=== PATIENT | female | born 1995 | race Two or more races ===

== ENCOUNTER 2024-06-02 14:52 | Inpatient (IN) | payer OTHER ==
[~2024-06-02] VITALS: Ht 165.1 cm; Wt 107.0 kg
[2024-06-02 12:09] VITALS: BP 147/83
[~2024-06-02 14:52] MED LIST: PRENA1 TRUE CO1 EACH
[2024-06-02] MEDS ORDERED: BETAMETHASONE ACETATE,SOD PHOS 30 MG/5 ML ML IM SCH (14:56)
[2024-06-02] MEDS ORDERED: RINGERS SOLUTION,LACTATED 1,000 ML IV SCH (15:00)
[2024-06-02] MEDS ORDERED: PROBIOTIC1 EACH PO (15:29)
[2024-06-02 15:30] VITALS: BP 149/75
[2024-06-02] MEDS ORDERED: BETAMETHASONE ACETATE,SOD PHOS 30 MG/5 ML ML ONE (15:52)
[2024-06-02 16:04] LABS: URINE APPEARANCE Cloudy; URINE BILIRRUBIN Negative (NEGATIVE); URINE BLOOD Negative; URINE COLOR Yellow; URINE GLUCOSE Negative (NEGATIVE); URINE KETONE Negative (NEGATIVE); URINE LEUKOCYTE Trace; URINE NITRATE Negative; URINE PROTEIN Trace (NEGATIVE)
[2024-06-02 16:08] LABS: URINE BACTERIA 8867.5 uL (0.0-1933); URINE EPITHELIAL CELLS 22.1 uL (0.0-38.8); URINE RBC 23.2 uL (0.0-20.8); URINE WBC 105.4 uL (0.0-23.2)
[2024-06-02 16:12] LABS: HEMATOCRIT 27.5 % (36.0-45.00); MEAN CORPUSCULAR HGB CONC 32.1 g/dl (32.0-36.0); PLATELET COUNT 239 K/uL (150-450); RED BLOOD COUNT 4.55 M/uL (4.00-6.00)
[2024-06-02 16:34] LABS: MEAN CORPUSCULAR HEMOGLOBIN 19.3 pg (27.00-32.0)
[2024-06-02 16:35] LABS: HEMOGLOBIN 8.8 g/dL (12.0-15.00); MEAN CELL VOLUME 60.3 fL (80.00-100.00); RED CELL DISTRIBUTION WIDTH 17.3 % (11.5-14.5)
[2024-06-02 16:42] LABS: INR 0.99; PARTIAL THROMBOPLASTIN TIME 24.3 SECONDS (22.0-34.0); PROTHROMBIN TIME 10.8 SECONDS (9.0-11.5); URINE CAST 1.22 uL (0.0-1.40)
[2024-06-02 16:46] LABS: ALBUMIN 2.5 gm/dL (3.4-5.0); BILIRUBIN TOTAL 0.43 mg/dL (0.3-1.2); CREATININE SERUM 0.39 mg/dL (0.55-1.02); GFR 192.97; GLOBULINA 3.3 G/DL (2.4-3.5); POTASSIUM 3.57 mEq/L (3.5-5.1); TOTAL PROTEIN 5.8 gm/dL (6.4-8.2)
[2024-06-02 19:48] VITALS: BP 139/78
[2024-06-02 23:38] VITALS: BP 149/70
[2024-06-03 03:24] VITALS: BP 116/60
[2024-06-03 06:26] VITALS: BP 121/61; O2SAT 100
[2024-06-03] MEDS ORDERED: SOD FERRIC GLUC COMPLX/SUCROSE 62.5 MG in 0.9 % SODIUM CHLORIDE 50 ML IV SCH (09:00)
[2024-06-03] MEDS ORDERED: SOD FERRIC GLUC COMPLX/SUCROSE 62.5 MG/5 ML AMPUL IV ONE (09:14)
[2024-06-03 11:50] VITALS: BP 142/60
[2024-06-03 13:07] VITALS: BP 149/84
[2024-06-03] MEDS ORDERED: RINGERS SOLUTION,LACTATED 1,000 ML IV SCH (15:00)
[2024-06-03] MEDS ORDERED: BETAMETHASONE ACETATE,SOD PHOS 30 MG/5 ML ML IM SCH (16:00)
[2024-06-03 16:12] VITALS: BP 118/61
[2024-06-03 18:10] LABS: URINE PROT QUANT 24HR 25.3 MG/DL
[2024-06-03 18:11] LABS: URINE PROT QUANT 24 HR 645.15 MG/24HR (42-225)
[2024-06-04 01:19] VITALS: BP 140/72
[2024-06-04] MEDS ORDERED: SOD FERRIC GLUC COMPLX/SUCROSE 62.5 MG/5 ML AMPUL IV ONE (08:52)
[2024-06-04] MEDS ORDERED: ACETAMINOPHEN 500 MG GEL..CAP PO PRN (12:15)
[2024-06-04 14:08] VITALS: BP 157/90
[2024-06-04 16:00] VITALS: BP 151/73
[2024-06-04 20:23] VITALS: BP 146/72
[2024-06-05 01:00] VITALS: BP 147/78
[2024-06-05 05:30] VITALS: BP 142/79
[2024-06-05 08:00] LABS: HEMATOCRIT 25.6 % (36.0-45.00); MEAN CORPUSCULAR HGB CONC 32.3 g/dl (32.0-36.0); PLATELET COUNT 222 K/uL (150-450); RED BLOOD COUNT 4.24 M/uL (4.00-6.00); RED CELL DISTRIBUTION WIDTH 17.1 % (11.5-14.5)
[2024-06-05 08:03] LABS: ALBUMIN 2.3 gm/dL (3.4-5.0); BILIRUBIN TOTAL 0.34 mg/dL (0.3-1.2); CALCIUM 8.2 mg/dL (8.5-10.1); CREATININE SERUM 0.35 mg/dL (0.55-1.02); GFR 218.64; POTASSIUM 3.68 mEq/L (3.5-5.1); TOTAL PROTEIN 5.3 gm/dL (6.4-8.2)
[2024-06-05 08:13] LABS: HEMOGLOBIN 8.3 g/dL (12.0-15.00); MEAN CELL VOLUME 60.4 fL (80.00-100.00); MEAN CORPUSCULAR HEMOGLOBIN 19.5 pg (27.00-32.0)
[2024-06-05 08:29] VITALS: BP 132/78
[2024-06-05 15:54] VITALS: BP 144/76; O2SAT 100
[2024-06-05] MEDS ORDERED: FAMOTIDINE/PF 20 MG/2 ML VIAL IV SCH (17:00)
[2024-06-05 19:04] VITALS: BP 136/79
[2024-06-05 23:13] VITALS: BP 132/79
[2024-06-06 03:40] VITALS: BP 120/69
[2024-06-06 07:45] VITALS: BP 150/71
[2024-06-06 11:25] VITALS: BP 150/80
[2024-06-06 16:27] VITALS: BP 140/79
[2024-06-07 01:16] VITALS: BP 136/74
[2024-06-07 01:17] VITALS: BP 136/74
[2024-06-07] MEDS ORDERED: SOD FERRIC GLUC COMPLX/SUCROSE 62.5 MG/5 ML AMPUL IV ONE (07:49)
[2024-06-07 09:00] VITALS: BP 158/82
[2024-06-07 11:16] VITALS: BP 157/77
[2024-06-07 14:00] VITALS: BP 144/86; BP 149/91
[2024-06-07 15:58] LABS: HEMOGLOBIN 9.6 g/dL (12.0-15.00); MEAN CORPUSCULAR HEMOGLOBIN 19.7 pg (27.00-32.0); MEAN CORPUSCULAR HGB CONC 32.2 g/dl (32.0-36.0); PLATELET COUNT 244 K/uL (150-450); RED BLOOD COUNT 4.89 M/uL (4.00-6.00); RED CELL DISTRIBUTION WIDTH 17.7 % (11.5-14.5)
[2024-06-07 15:59] LABS: MEAN CELL VOLUME 61.3 fL (80.00-100.00)
[2024-06-07 16:00] VITALS: BP 150/60
[2024-06-07 16:25] LABS: ALBUMIN 2.7 gm/dL (3.4-5.0); BILIRUBIN TOTAL 0.45 mg/dL (0.3-1.2); CREATININE SERUM 0.35 mg/dL (0.55-1.02); GFR 218.64; GLOBULINA 3.5 G/DL (2.4-3.5); POTASSIUM 3.74 mEq/L (3.5-5.1); TOTAL PROTEIN 6.2 gm/dL (6.4-8.2)
[2024-06-08 00:22] VITALS: BP 136/75
[2024-06-08 08:17] VITALS: BP 141/87; O2SAT 99
[2024-06-08 15:47] VITALS: BP 150/80
[2024-06-08 17:35] VITALS: BP 153/83
[2024-06-08] MEDS ORDERED: MISOPROSTOL 25 MCG/4 ML GEL.W.APPL ONE (18:12)
[2024-06-08] MEDS ORDERED: MISOPROSTOL 25 MCG TABLET VAG ONE (18:30)
[2024-06-08] MEDS ORDERED: MISOPROSTOL 25 MCG/4 ML GEL.W.APPL VAG ONE (18:45)
[2024-06-08 19:28] VITALS: BP 154/87
[2024-06-08 23:44] VITALS: BP 136/80
[2024-06-09 04:00] VITALS: BP 132/73
[2024-06-09 07:39] VITALS: BP 136/74
[2024-06-09] MEDS ORDERED: MISOPROSTOL 25 MCG TABLET ONE (07:43)
[2024-06-09] MEDS ORDERED: MISOPROSTOL 25 MCG TABLET VAG ONE (09:00)
[2024-06-09 11:16] VITALS: BP 152/79
[2024-06-09] MEDS ORDERED: OXYTOCIN 20 UNITS/500ML RL PIGGYBAG IV ONE (11:48)
[2024-06-09] MEDS ORDERED: OXYTOCIN 20 UNITS/500ML RL PIGGYBAG IV SCH (13:45)
[2024-06-09 16:03] VITALS: BP 153/63
[2024-06-09] MEDS ORDERED: CEFOXITIN SODIUM 2,000 MG VIAL IV ONE ×2 (16:58→18:15)
[2024-06-09] MEDS ORDERED: ERYTHROMYCIN BASE 1 GM TUBE OP SCH (17:15)
[2024-06-09] MEDS ORDERED: OXYTOCIN 1,000 ML IV SCH (17:15)
[2024-06-09] MEDS ORDERED: CHLORHEXIDINE GLUCONATE 120 ML BOTTLE TP SCH (17:15)
[2024-06-09] MEDS ORDERED: MAGNESIUM SULFATE IN WATER 500 ML IV SCH (17:15)
[2024-06-09] MEDS ORDERED: RINGERS SOLUTION,LACTATED 1,000 ML IV SCH (17:15)
[2024-06-09] MEDS ORDERED: METHYLERGONOVINE MALEATE 0.2 MG/ML AMPUL ONE ×3 (17:21→17:40)
[2024-06-09] MEDS ORDERED: METHYLERGONOVINE MALEATE 0.2 MG/ML AMPUL IM SCH (17:22)
[2024-06-09] MEDS ORDERED: OXYTOCIN 10 UNIT/ML (10ML) IV ONE (17:30)
[2024-06-09] MEDS ORDERED: OXYTOCIN 10 UNITS/ML VIAL IV ONE ×2 (17:45→18:15)
[2024-06-09] MEDS ORDERED: METHYLERGONOVINE MALEATE 0.2 MG/ML AMPUL IM NR (17:45)
[2024-06-09] MEDS ORDERED: MORPHINE SULFATE 4 MG/ML VIAL IV ONE ×2 (17:50→18:20)
[2024-06-09] MEDS ORDERED: PROMETHAZINE HCL 25 MG/ML AMPUL IV SCH (18:00)
[2024-06-09] MEDS ORDERED: MEPERIDINE HCL/PF 25 MG/ML VIAL IV SCH (18:00)
[2024-06-09] MEDS ORDERED: SIMETHICONE 125 MG CAPSULE PO SCH (18:00)
[2024-06-09] MEDS ORDERED: ERYTHROMYCIN BASE 1 GM TUBE OP ONE (18:15)
[2024-06-09] MEDS ORDERED: PROMETHAZINE HCL 25 MG/ML AMPUL ONE (18:15)
[2024-06-09] MEDS ORDERED: MAGNESIUM SULFATE IN WATER 0.04 GM/ML IV.SOLN IV ONE (18:15)
[2024-06-09] MEDS ORDERED: MEPERIDINE HCL 25 MG/ML AMPUL IV ONE (18:50)
[2024-06-09] MEDS ORDERED: PROMETHAZINE HCL 25 MG/ML AMPUL IV ONE (18:50)
[2024-06-09 19:31] LABS: HEMOGLOBIN 10.1 g/dL (12.0-15.00); MEAN CORPUSCULAR HEMOGLOBIN 19.7 pg (27.00-32.0); MEAN CORPUSCULAR HGB CONC 31.5 g/dl (32.0-36.0); PLATELET COUNT 228 K/uL (150-450); RED BLOOD COUNT 5.12 M/uL (4.00-6.00); RED CELL DISTRIBUTION WIDTH 18.7 % (11.5-14.5)
[2024-06-09 19:35] LABS: MEAN CELL VOLUME 62.6 fL (80.00-100.00)
[2024-06-09 20:15] VITALS: BP 138/86
[2024-06-09] MEDS ORDERED: METHYLERGONOVINE MALEATE 0.2 MG TABLET PO SCH (21:00)
[2024-06-10] VITALS: BP 145/79
[2024-06-10] MEDS ORDERED: ACETAMINOPHEN WITH CODEINE 1 UDTAB TABLET PO SCH (09:09)
[2024-06-10 09:16] VITALS: BP 148/89
[2024-06-10] MEDS ORDERED: METHYLERGONOVINE MALEATE 0.2 MG TABLET PO SCH (13:00)
[2024-06-10 14:32] VITALS: BP 145/90
[2024-06-10 17:07] VITALS: BP 148/88
[2024-06-10 21:58] VITALS: BP 160/90
[2024-06-11 02:42] VITALS: BP 142/82
[2024-06-11 06:26] VITALS: BP 138/84
[2024-06-11 09:00] VITALS: BP 132/80
[2024-06-11 16:00] VITALS: BP 137/84
[2024-06-11 22:00] VITALS: BP 129/78
[2024-06-12 02:10] VITALS: BP 139/87
[2024-06-12 10:04] VITALS: BP 123/84
[2024-06-12] MEDS ORDERED: Tylenol #3 PO (11:44)
== END 2024-06-12 12:46 | disposition home or self-care (01) | DRG 788 ==
LOC: LDR 14:52 → OB/GYN 14:52
PROVIDERS: Obstetrics & Gynecology; ADMIT Obstetrics & Gynecology; ATTEND Obstetrics & Gynecology
PROC: 4A1HXCZ Monitoring of Products of Conception, Cardiac Rate, External Approach (ICD-10-PCS; 2024-06-02)
PROC: BY4FZZZ Ultrasonography of Third Trimester, Single Fetus (ICD-10-PCS; 2024-06-02)
PROC: 3E0P7VZ Introduction of Hormone into Female Reproductive, Via Natural or Artificial Opening (ICD-10-PCS; 2024-06-08)
PROC: 3E033VJ Introduction of Other Hormone into Peripheral Vein, Percutaneous Approach (ICD-10-PCS; 2024-06-09)
PROC: 10D00Z1 Extraction of Products of Conception, Low, Open Approach (ICD-10-PCS; principal; 2024-06-09 16:00)
DX: O75.89 Other specified complications of labor and delivery (principal); O36.8130 Decreased fetal movements, third trimester, not applicable or unspecified; O36.63X0 Maternal care for excessive fetal growth, third trimester, not applicable or unspecified; O14.94 Unspecified pre-eclampsia, complicating childbirth; O13.4 Gestational [pregnancy-induced] hypertension without significant proteinuria, complicating childbirth; Z3A.37 37 weeks gestation of pregnancy; Z3A.36 36 weeks gestation of pregnancy; Z37.0 Single live birth; Z20.822 Contact with and (suspected) exposure to COVID-19